=== PATIENT | female | born 1980 | race Caucasian/White ===

== ENCOUNTER → 2020-08-21 | Day surgery (SDC) | payer OTHER ==
--- NOTE | 2020-08-17 02:49 | Pre Op History & Physical ---
DATE OF SURGERY: August 21, 2020. CHIEF COMPLAINT: Chronic sinusitis, nasal obstruction, and recurrent bilateral eustachian tube dysfunction. HISTORY OF PRESENT ILLNESS: This 40-year-old female has history of nasal obstruction, frontal and maxillary pain, postnasal drip, and loud snoring. The patient has no epistaxis. She denies any change in her sense of smell. The patient has claimed that she has decreased hearing with off balance and tinnitus on the right. She has no discharge or otalgia. The patient has no previous surgery to the ear. She complained of tapping sound in the ear. There is family history of hearing loss in young members of the family. Audiogram of the patient showed the patient has speech discrimination of 96% bilaterally with moderate sensorineural hearing loss bilaterally and symmetrical. She had normal tympanogram at the time. CT scan of paranasal sinuses done before surgery showed the patient has chronic sinusitis with deviated nasal septum and maxillary sinusitis. Visualized portion of mastoid cavity on both sides was normal. The patient's condition has been treated with more than 12 weeks of antibiotics, topical nasal steroid, decongestant with no improvement. REVIEW OF SYSTEMS: System review showed no recent cardiovascular, respiratory, or GI problem. PAST MEDICAL HISTORY: The patient has no significant medical problem. PAST SURGICAL HISTORY: She has previous C-sections x2. ALLERGIES: SHE IS ALLERGIC TO CODEINE. MEDICATIONS: She is not on any regular medication. SOCIAL HISTORY: She is a nonsmoker, nondrinker. FAMILY HISTORY: Noncontributory. PHYSICAL EXAMINATION: VITAL SIGNS: Within normal limits. HEENT: Ear exam showed normal tympanic membranes bilaterally. There was question of negative pressure on both sides, worse on the right. Nasal exam showed deviated nasal septum on the right side about 30%. Oropharynx and oral cavity showed 1+ tonsils bilaterally with no exudate or debris. NECK: Showed no lymph node or thyroid palpable. CHEST: Showed good air entry bilaterally. CARDIOVASCULAR: Showed S1 and S2. No murmur noted. ASSESSMENT AND PLAN: Ms. Albarran has chronic sinusitis, nasal obstruction, eustachian tube dysfunction, and recurrent otalgia, which has been resistant to conservative therapy. The suggested treatment is endoscopic sinus surgery, septoplasty, resection of inferior turbinate, bilateral myringotomy tubes, and other necessary procedure. The complication of procedure includes, but not limited to bleeding, infection, CSF leak, blindness, double vision, meningitis, septal perforation, septal hematoma, persistent nasal obstruction, persistent nasal crusting, nasal deformity, persistent recurrence of sinus problem, TM perforation, persistent drainage in the ear, hearing loss, no improvement of the hearing, and persistent recurrence of the ear problem. Alternatives will be continue observation, continue antibiotic therapy, topical nasal steroid therapy, systemic steroid therapy, decongestant and bilateral myringotomy tubes in the office setting. The patient on the day of last visit August 13, claimed that she is starting to have otalgia worse on the right side. She has negative pressure in the ear, noted worse on the right. The patient was advised to start her amoxicillin for a weekend. The patient has elected to undergo with the surgical procedure. MD FANNY Price/BERTHA /[id number]
[2020-08-18 15:20] LABS: BASOPHILS # (AUTO) 0.1 (0.0-0.1); BASOPHILS % 0.7 % (0.0-1.0); EOSINOPHILS # (AUTO) 0.2 (0.0-0.4); EOSINOPHILS % 2.5 % (0.0-6.0); HEMATOCRIT 42.4 % (34.2-44.1); HEMOGLOBIN 14.4 g/dL (12.0-16.0); LYMPHOCYTES # (AUTO) 4.2 (1.0-3.2); LYMPHOCYTES % 47.1 % (18.0-39.1); MEAN CORPUSCULAR HEMOGLOBIN 31.9 pg (28-32); MONOCYTES # (AUTO) 0.6 (0.2-0.8); MONOCYTES % 6.6 % (4.4-11.3); NEUTROPHILS # (AUTO) 3.8 (2.1-6.9); PLATELET COUNT 275 x10e3/uL (140-360); RED BLOOD COUNT 4.51 x10e6/uL (3.6-5.1); RED CELL DISTRIBUTION WIDTH 12.9 % (11.7-14.4)
[2020-08-18 15:36] LABS: INR 0.86; PARTIAL THROMBOPLASTIN TIME 26.4 seconds (23.8-35.5); PROTHROMBIN TIME 12.2 seconds (11.9-14.5)
[~2020-08-21] MED LIST: CLARITIN10 MG; DEXAMETHASONE SOD PHOS 10 MG/1 ML VIAL ONE; DEXAMETHASONE SOD PHOS INJ 4 MG/ML VIAL ONE; EPINEPHRINE HCL 1:1000 1ML 1 MG/ML AMP ONE; FENTANYL CITRATE/PF 100MCG/2 ML INJ ONE; GLYCOPYRROLATE INJ 0.2 MG/ML VIAL ONE; HYDROMORPHONE 1MG/1ML INJ ONE; LIDOCAINE 1% W/EPINEPHRINE 20 ML VIAL ONE; LIDOCAINE HCL 2% LOCAL INJ 5 ML SDV VIAL INJ ONE; METOCLOPRAMIDE HCL 10 MG/2ML VIAL ONE; MIDAZOLAM HCL 2 MG/2 ML VIAL ONE; NEOSTIGMINE 1 MG/ML 10ML VIAL ONE; OFLOXACIN 0.3% (OTIC SOL) 5 ML BTL ONE; ONDANSETRON HCL INJ 2MG/ML 2ML 2 MG/ML VIAL ONE; PROPOFOL IV EMULSION 10 MG/ML 20 ML VIAL ONE; PROTONIX20 MG PO; ROCURONIUM BROMIDE 10 MG/ML 5ML VIAL IV ONE; SEVOFLURANE INHAL SOLN 250 ML PEN BTL ONE; VITAMIN D PO
--- NOTE | 2020-08-21 13:56 | Operative Report ---
DATE OF PROCEDURE: 08/21/2020 SURGEON: Lewis Howe MD PREOPERATIVE DIAGNOSES: 1. Chronic sinusitis. 2. Nasal obstruction. 3. Bilateral eustachian tube dysfunction. POSTOPERATIVE DIAGNOSES: 1. Chronic sinusitis. 2. Nasal obstruction. 3. Bilateral eustachian tube dysfunction. OPERATIVE PROCEDURES: 1. Bilateral maxillary sinus antrostomy. 2. Bilateral resection of inflamed tissue and maxillary antrum. 3. Septoplasty. 4. Bilateral myringotomy and tubes. SURGEON: Lewis Howe MD ANESTHESIA: Anesthesiology group. INDICATIONS: This 40-year-old female has history of nasal obstruction, postnasal drip discharge from her nose. The patient also has recurrent effusion in the ear with history of eustachian tube problem, which is persistent. The patient also has a history of sensorineural hearing loss requiring hearing aids, so when the eustachian tube dysfunction affect her, her hearing goes down more. On examination, she was noted to have a deviated nasal septum to the right side about 30% anteriorly. She was noted to have negative pressure in both ears. CT scan of paranasal sinuses done before surgery showed the patient has maxillary sinus involvement on both sides and confirmed deviated nasal septum. No effusion was noted in the middle ear during the CAT scan of the sinuses. Audiogram showed the patient has [id number] sensorineural hearing loss. It was decided that septoplasty, endoscopic sinus surgery, and bilateral myringotomy tubes and other necessary procedures will be beneficial for her. DESCRIPTION OF PROCEDURE: The patient was taken to the operating room, put under general anesthesia, endotracheally intubated. The nose was injected with 1% Xylocaine with 1:100,000 epinephrine for hemostasis. Epinephrine-soaked pledget was inserted in nose and subsequently removed. The left paranasal sinuses were approached first. Middle turbinate was medialized. Using a curved probe, natural ostia maxillary sinus was entered. This was enlarged anteriorly and posteriorly using a backbiter and Thru-Cut forceps respectively. Inflamed tissue in the maxillary antrum was dissected using a microshaver. The right paranasal sinuses were approached. Middle turbinate was medialized. Using a curved probe, natural ostium maxillary sinus was entered. This was enlarged anteriorly and posteriorly using a backbiter and Thru-Cut forceps respectively. Inflamed tissue and maxillary antrum were dissected using the microshaver. The septoplasty was performed. Hemitransfixion incision was done on the left side. Mucoperichondrial flap was elevated on the left. Bony cartilaginous junction was encountered and this was . Perpendicular plate of the ethmoid was transected. This was removed along with the vomer. The septal spur cartilaginous portion removed using a Tarkio elevator. The quadrangular cartilage after being freed from posterior inferior constraint was able to swing back into the midline. The inadvertent drainage hiatus was noted in both the left and the right mucoperichondrial flap. These were not opposed to each other. The hemitransfixion incision was closed using 4-0 chromic suture in an interrupted fashion. Septal whipstitch was done using 4-0 plain gut suture to reapproximate the mucoperichondrial flap and prevent septal hematoma formation. Next, nasal pull was inserted in the sinus cavities on either side. This was done to prevent synechiae formation and for hemostasis. The oropharynx, nasopharynx, and nasal cavity was examined. No other abnormality was noted. The bilateral myringotomy and tubes were performed. The right ear was examined. The ear canal was debrided. The myringotomy was done in anterior superior quadrant. No effusion was noted in middle ear cleft. Oneal grommet tube was inserted. Similar procedure was carried on the left side. Again, after the ear canal was debrided, myringotomy was done in the anterior superior quadrant. No effusion was noted in middle ear cleft on the left. Oneal grommet tube was inserted. The patient tolerated the above procedure well with estimated blood loss of about 30 mL. She was given 20 mg of Decadron intraoperatively. The patient was able to be transferred to recovery room in stable condition. MD FANNY Price/YESSYL /[id number]
[2020-08-21 15:00] VITALS: BP 122/77
== END | disposition home or self-care (01) ==
LOC: OR 09:50
PROVIDERS: ATTEND Otolaryngology Otolaryngology/Facial Plastic Surgery
DX: J32.0 Chronic maxillary sinusitis (principal); J34.2 Deviated nasal septum; H69.83 Other specified disorders of Eustachian tube, bilateral; J34.89 Other specified disorders of nose and nasal sinuses; H92.03 Otalgia, bilateral; K21.9 Gastro-esophageal reflux disease without esophagitis; K76.0 Fatty (change of) liver, not elsewhere classified; Z88.6 Allergy status to analgesic agent; Z01.812 Encounter for preprocedural laboratory examination; Z11.59 Encounter for screening for other viral diseases
CPT/HCPCS: 30520; 31267; 36415; 69436; 81025; 85025; 85610; 85730; 88300; 88305; J0171; J1100 ×2; J1170; J2001; J2250; J2405; J2704; J2710; J2765; J3010; U0002; 88304